=== PATIENT | female | born 1965 | race Caucasian/White ===

== ENCOUNTER 2019-10-31 15:57 | Outpatient (REF) | payer BC, SELFPAY ==
[2019-10-31 19:31] LABS: Abs Immature Grans 0.02 10^3/uL (0.0-0.06); Absolute Basophil Count 0.04 10^3/uL (0.0-0.2); Absolute Eosinophil Count 0.14 10^3/uL (0.0-0.7); Absolute Monocyte Count 0.47 10^3/uL (0.1-0.8); Absolute Neutrophil Count 4.11 10^3/uL (1.2-6.7); Basophils % 0.6; Eosinophils % 2.2; HGB 13.9 g/dL (11.2-15.7); Immature Grans % 0.3; Lymphocytes % 23.9; MCH 30.1 pg (27.0-33.0); MCHC 32.3 % (32.0-36.0); MCV 93.1 fL (80-95); MPV 11.1 fL (8.0-11.0); Monocytes % 7.5; Neutrophils % 65.5; Nucleated RBC 0 %; Platelet Count 255 10^3/uL (130-400); RBC 4.62 10^6/uL (3.93-5.22); RDW 12.5 % (11.7-14.6); RDW-SD 42.7 fL; WBC 6.28 10^3/uL (4.4-10.8)
[2019-10-31 19:48] LABS: ALT 27 U/L (14-59); AST 18 U/L (15-37); Albumin 3.8 g/dL (3.4-5.0); Alkaline Phosphatase 62 U/L (46-116); Anion Gap 6.2 mmol/L (3-11); BUN 11 mg/dL (7-18); Bilirubin, Total 1.4 mg/dL (0.2-1.0); CO2 28.8 mmol/L (21.0-32.0); CREATININE 0.75 mg/dL (0.55-1.02); Calcium 8.5 mg/dL (8.5-10.1); Calculated LDL 112 mg/dL (<100); Chloride 106 mmol/L (98-107); Cholesterol 187 mg/dL (<200); Glucose 67 mg/dL (74-106); HDL Cholesterol 61 mg/dL (40-60); Potassium 4.4 mmol/L (3.5-5.1); Sodium 141 mmol/L (136-145); TSH (W/Ref FT4) 1.71 uIU/mL (0.36-3.74); Total Protein 6.5 g/dL (6.4-8.2); Triglyceride 71 mg/dL (<150)
== END 2019-10-31 16:17 ==
LOC: NCHCN 15:57
PROVIDERS: PCP Physician Assistant Medical; Visit Provider Physician Assistant Medical
DX: Z00.00 Encounter for general adult medical examination without abnormal findings (principal); Z13.29 Encounter for screening for other suspected endocrine disorder; Z13.220 Encounter for screening for lipoid disorders; Z13.0 Encounter for screening for diseases of the blood and blood-forming organs and certain disorders involving the immune mechanism; Z13.228 Encounter for screening for other metabolic disorders
CPT/HCPCS: 80053; 80061; 84443; 85025

== ENCOUNTER 2019-11-20 01:03 | Outpatient (CLI) | payer BC, SELFPAY ==
--- NOTE | 2019-11-20 | DI.MAMMO_ITS ---
EXAM: MAMMO SCREENING CLINICAL HISTORY: SCREENING, [facility],Z00.00 TECHNIQUE: Mammograms were interpreted according to the usual protocol including computer analysis w [employer] CAD system, tomosynthesis and C-view imaging. COMPARISON: FINDINGS: The breasts are of moderate density with fairly symmetrical distribution of fibroglandular tissue. N o dominant mass or clumped microcalcification is identified in either breast. The current examinatio n is compared with previous examinations including March 2017 and there is question of interval in crease in prominence of a focal area of asymmetric density projected in the medial retroareolar porti on of the left breast. Additional mammographic views of this area are requested to include CC and ML O spot compression views of the left breast. No other significant change in comparison with the previous examinations. IMPRESSION: Additional mammographic views of the left breast are requested as described above. Breast ultrasound may be indicated as well depending on the results of the additional mammographic views. BI-RADS Category 0 - Assessment Incomplete: Need additional imaging evaluation Breast Density - Category B - Scattered areas of fibroglandular density
== END 2019-11-20 01:23 ==
PROVIDERS: PCP Physician Assistant Medical; Visit Provider Physician Assistant Medical
DX: Z12.31 Encounter for screening mammogram for malignant neoplasm of breast (principal); Z00.00 Encounter for general adult medical examination without abnormal findings
CPT/HCPCS: 77063; 77067

== ENCOUNTER 2019-11-25 01:05 | Outpatient (CLI) | payer BC, SELFPAY ==
--- NOTE | 2019-11-25 | DI.MAMMO_ITS ---
EXAM: MG MAMMO SCREEN CALL BACK UNI CLINICAL HISTORY: F/U ABNL MAMMO,?INCREASE IN ASYMMETRIC DENSITY,RETROAREOLAR LT BREAST TECHNIQUE: Spot compression views including C- View and tomographic imaging were performed. COMPARISON: 2009 through 20 November 2019. FINDINGS: Spot compression views with tomography were performed of the lower and inner quadrant of the left elliot ast. No suspicious masses or suspicious microcalcifications are seen. No persistent abnormality is seen on the additional views performed. The findings are consistent wit h overlying fibroglandular tissue. There has been no significant change from prior exams. IMPRESSION: BI-RADS Category 1, Negative Yearly screening mammography is recommended. Breast Density - Category B, scattered fibroglandular densities.
== END 2019-11-25 01:25 ==
PROVIDERS: PCP Physician Assistant Medical; Visit Provider Physician Assistant Medical
DX: R92.8 Other abnormal and inconclusive findings on diagnostic imaging of breast (principal); R92.2 Inconclusive mammogram
CPT/HCPCS: 77063; 77067

== ENCOUNTER 2020-01-21 18:27 | Outpatient (REF) | payer BC, SELFPAY ==
[2020-01-24 10:00] LABS: COVID-19 RT-PCR Result NEGATIVE (Negative)
== END 2020-01-21 18:47 ==
LOC: NCHCN 18:27
PROVIDERS: PCP Physician Assistant Medical; Visit Provider Physician Assistant Medical
DX: R05 Cough (principal)
CPT/HCPCS: U0003

== ENCOUNTER 2021-10-31 16:40 | Outpatient (REF) | payer BC, SELFPAY ==
--- NOTE | 2021-10-31 11:00 | PAPFT_PTH ---
PATIENT: Janes Martinez LOC: [facility]#:[id number] AGE/SX: 56/F ROOM: RE10/31/[address]: Sebastián Langston : 1965 BED: DIS: 10/31/2021 SPEC #: [id number] RECD: 10/31/21 17:08 STATUS: NO TOVAR #: [id number] FCO: 10/31/21 11:[address]: Sebastián Langston DEPT: [facility] Cytology RECD BY: Radha Ochoa Tissues: 1 - CX/ENDOCX FOR PAP SMEARS Procedures: PAP THIN PREP/UVM Screening HPV DNA PROBE Comments: [id number]
[2021-10-31 20:25] LABS: Glucose,1 Hr (Glucola) 83 mg/dL (80-140)
[2021-10-31 20:29] LABS: Calculated LDL 119 mg/dL (<100); Cholesterol 198 mg/dL (<200); HDL Cholesterol 65 mg/dL (40-60); Triglyceride 72 mg/dL (<150)
== END 2021-10-31 16:41 | disposition home or self-care (01) ==
LOC: NCHCN 16:40
PROVIDERS: PCP Physician Assistant Medical; Visit Provider Physician Assistant Medical
DX: Z12.4 Encounter for screening for malignant neoplasm of cervix (principal); Z11.51 Encounter for screening for human papillomavirus (HPV); Z00.00 Encounter for general adult medical examination without abnormal findings
CPT/HCPCS: 80061; 82950; 88142; 87624

== ENCOUNTER 2022-02-17 01:01 | Outpatient (CLI) | payer BC, SELFPAY ==
--- NOTE | 2022-02-17 08:30 | DI.MAMMO_ITS ---
Exam(s) MAMMO SCREENING EXAM: MAMMO SCREENING CLINICAL HISTORY: SCREENING, Z12.31 TECHNIQUE: Mammograms were interpreted according to the usual protocol including computer analysis w [employer] CAD system, tomosynthesis and C-view imaging. COMPARISON: 2014 through 2019 FINDINGS: The breasts are composed of scattered fibroglandular densities, Breast Density category B. No suspicious masses or suspicious microcalcifications are seen. No skin thickening or abnormal axillary lymph nodes are seen. There has been no significant change from prior exams. IMPRESSION: BI-RADS Category 1, Negative mammogram Yearly screening mammography is recommended. Breast Density - Category B, scattered fibroglandular densities. A negative radiographic report should not delay biopsy if a dominant or clinically suspicious mass is present. Up to ten percent of cancers are not identified on mammography. A negative report may reinforce clinical impression. Adenosis and dense breasts may obscure an underlying neoplasm. False positive reports average 6 to 10%. Patient will receive a letter notifying them of these results.
== END 2022-02-17 01:21 ==
LOC: DI 01:01
PROVIDERS: PCP Physician Assistant Medical; Visit Provider Physician Assistant Medical
DX: Z12.31 Encounter for screening mammogram for malignant neoplasm of breast (principal)
CPT/HCPCS: 77063; 77067

== ENCOUNTER 2022-03-08 07:25 | Outpatient (CLI) | payer BC, SELFPAY ==
--- NOTE | 2022-03-08 | DI.RAD_ITS ---
Exam(s) XR THUMB RT EXAM: XR THUMB RT CLINICAL HISTORY: RT THUMB PAIN, M79.644. TECHNIQUE: 2D digital imaging was performed. Three views. COMPARISON: No exams were available for comparison FINDINGS: BONES: No acute fracture is present. No bony destructive lesion is seen. Minimal degenerative change s 1st MTP joint.. JOINTS: No dislocation present. SOFT TISSUE: Normal. IMPRESSION: Minimal degenerative changes. DATA REPOSITORY: RADIATION DOSE DELIVERED:
== END 2022-03-08 07:45 ==
LOC: DI 07:25
PROVIDERS: PCP Physician Assistant Medical; Visit Provider Nurse Practitioner Family
DX: M79.644 Pain in right finger(s) (principal); M25.841 Other specified joint disorders, right hand
CPT/HCPCS: 73140

== ENCOUNTER 2022-04-23 10:04 | Emergency (ER) | payer BC, SELFPAY ==
[2022-04-23 10:06] VITALS: BP 139/81; PULSE 63; RESP 18; TEMP 37.2; O2SAT 100
--- NOTE | 2022-04-23 10:36 | ED.GENADUL_ITS ---
Discharge Plan Disposition Patient Disposition: Home Condition: Stable Discharge Details Clinical Impression: Erysipelas, Rash Primary Care Provider: Sebastián Langston ED Provider: Shantanu Marion Home Meds and New Rx's Prescriptions: New cephalexin 500 mg capsule 500 mg PO QID Qty: 28 0RF Continued diphenhydramine HCl [Allergy (diphenhydramine)] 25 mg capsule 25 mg PO QHS hydroxyzine HCl 25 mg tablet 25 mg PO QHS ibuprofen 800 MG tablet 800 mg PO PRN PRN Discharge Instructions Instructions: Cellulitis (ED) Additional Instructions: Please continue to take Benadryl. Dose according to label. Take antibiotic as prescribed. Be sure to complete the full course. Please use sensitive skin detergents and avoid fragrances. You may trial cleansing oil (like Jojoba oil) instead of soap to avoid skin drying and irritant effect of soap. Please follow-up with dermatology. Please contact your primary care physician to arrange follow-up. If rash does not improve with antibiotics, you may need additional treatment including consi deration for steroid. Return to the ER immediately for any worsening or new concerning symptoms. Referrals: Sebastián Langston PA [Primary Care Provider] - Medical Decision Making 56-year-old female with history of sensitive skin here with chronic rash involving her upper extremities and back with multiple excoriations, now with more confluent erythema left face concerning for erysipelas. Plan to initiate treatment with Keflex. Will send RPR. Regarding chronic rash, patient has follow-up scheduled with dermatology. I hatch ve advised her to switch all detergents to sensitive skin and discussed potentially replacing soap with cleansing oil. Patient instructed to follow-up with PCP and dermatology. Usual and customary i nstructions otherwise reviewed. HPI General Mode of arrival: ambulatory . Date/Time Provider Initiated Documentation: 04/23/22 10:24 . Limitations to Documentation: no limitations . Information obtained by: patient . HPI Narrative: 56-year-old female presents with chief complaint of rash. Patient notes she has had rash on her arms and upper back for the past few months. She notes she has very sensitive skin and has been itching frequently. Over the past 4 days she has developed increased swelling and redness of her left face. Rash is confluent and worsening on her face. She has no associated fever. Rash is not painful. Patient notes she has follow-up scheduled with dermatology in June. No history of STDs. Related Data Home Medications Medication Instructions Recorded Confirmed ibuprofen 800 mg tablet 800 mg PO PRN PRN 08/06/14 04/23/22 diphenhydramine HCl 25 mg capsule 25 mg PO QHS 11/11/19 04/23/22 (Allergy (diphenhydramine)) hydroxyzine HCl 25 mg tablet 25 mg PO QHS 04/17/22 04/23/22 cephalexin 500 mg capsule 500 mg PO QID #28 caps 04/23/22 Previous Rx's Medication Instructions Recorded cephalexin 500 mg capsule 500 mg PO QID #28 caps 04/23/22 Allergies Allergy/AdvReac Type Severity Reaction Status Date / Time phenazopyridine Allergy Verified 04/23/22 10:10 [From Pyridium] aspirin AdvReac Intermediate gi upset Unverified 04/23/22 10:10 silicone AdvReac Intermediate Swelling/Ed Unverified 04/23/22 10:10 talita General Stated Complaint: Cellulitis MARBELLA: 3 Review of Systems All systems reviewed & are unremarkable except as noted in HPI and below Constitutional Constitutional: Denies fever(s) Integumentary/Breasts Skin/Breast: Reports as per HPI PFSH All Active Problems Erysipelas (Acute) Rash (Acute) Sensorineural hearing loss, bilateral (Acute 04/20/14) Bilateral hearing loss (Acute) Headache (Acute) Lipoma (Acute) Medical History Neoplasm of skin (04/20/14) Social History Smoking/Tobacco Use Status: Never Smoking risk assessment performed?: Yes Drug use: Never Current gender identity: female Exam Const General: cooperative and no acute distress HENMT Mouth: moist mucous membranes Eyes Conjunctivae: normal conjunctivae Sclera: normal sclerae Neck Neck: supple Resp Auscultation: clear to auscultation bilaterally, no rales, no rhonchi and no wheezes Cardio Rate: regular rate and not tachycardic Rhythm: regular rhythm GI Palpation: soft, not firm, no guarding, no masses, not rigid and nontender Skin Rashes: rashes noted (Maculopapular rash on her arms and upper back with excoriations) Other: Confluent raised erythema of her left face concerning for erysipelas Neuro General: patient alert, patient awake and tone normal Course Vital Signs Vital signs: Vital Signs Temperature 37.2 C 04/23/22 10:06 Pulse 63 04/23/22 10:06 Respiratory Rate 18 04/23/22 10:06 Blood Pressure 139/81 04/23/22 10:06 Pulse Oximetry 100 04/23/22 10:06 Temperature 37.2 C 04/23/22 10:06 Temperature Source Skin 04/23/22 10:06 Pulse 63 04/23/22 10:06 Respiratory Rate 18 04/23/22 10:06 Blood Pressure 139/81 04/23/22 10:06 Blood Pressure Position Supine 04/23/22 10:06 Pulse Oximetry 100 04/23/22 10:06 Oxygen Delivery Method Room Air 04/23/22 10:06 Oxygen Flow Rate 0 04/23/22 10:06
[2022-04-23] MEDS: Cephalexin 500 MG CAP PO (10:49)
[2022-04-23 11:30] VITALS: BP 130/88; PULSE 58; RESP 18; TEMP 37; O2SAT 99
[2022-04-25 10:45] LABS: Syphilis Serology (RPR) Negative (Negative)
== END 2022-04-23 11:31 | disposition home or self-care (01) ==
PROVIDERS: Emergency Provider Student in an Organized Health Care Education/Training Program; PCP Physician Assistant Medical
DX: A46 Erysipelas (principal); R21 Rash and other nonspecific skin eruption
CPT/HCPCS: 99283; 86592; 99284

== ENCOUNTER 2022-09-12 08:21 | Emergency (ER) | payer BC, SELFPAY ==
--- NOTE | 2022-09-12 08:15 | DI.RAD_ITS ---
Exam(s) XR RIBS RT W PA LAT CHEST CLINICAL HISTORY: right rib pain after fall. COMPARISON: No exams were available for comparison TECHNIQUE:: PA and lateral views of the chest and four views of the right ribs were performed. FINDINGS: LUNGS:Clear. No pleural abnormality seen. HEART: Normal. MEDIASTINUM: Normal. BONES: Nondisplaced fractures of the anterior right 4th, 5th and 6th ribs. No bony destructive lesio n is seen. OTHER FINDINGS: None. IMPRESSION: 1. Nondisplaced fractures of the right 4th through 6th ribs. 2. No acute pulmonary findings.
[2022-09-12 08:25] VITALS: BP 133/84; PULSE 60; RESP 18; TEMP 36.7; O2SAT 100
[2022-09-12] MEDS: Lidocaine 5% Patch 1 PATCH TP ×2 (08:40→09:36)
[2022-09-12] MEDS: Acetaminophen 500 MG TAB 1000 MG PO (08:40)
--- NOTE | 2022-09-12 08:45 | ED.GENADUL_ITS ---
Discharge Plan Disposition Patient Disposition: Home Condition: Good Discharge Details Clinical Impression: Rib pain on right side Primary Care Provider: Sebastián Langston ED Provider: Alek Will Home Meds and New Rx's Prescriptions: New lidocaine [Lidoderm] 5 % adhesive patch,medicated 1 patch Topical Q24H Qty: 15 0RF No Action diphenhydramine HCl [Allergy (diphenhydramine)] 25 mg capsule 25 mg PO QHS hydroxyzine HCl 25 mg tablet 25 mg PO QHS ibuprofen 800 MG tablet 800 mg PO PRN PRN Discharge Instructions Instructions: Chest Wall Pain (ED) Additional Instructions: At this time you do have a fracture of your right fourth fifth and sixth ribs. Please apply the Lidoderm patches as directed. Please take Tylenol and Motrin as needed for pain. You can use a wrap on the area if it helps with pain and continues your deep breathing. Please use the incentive spirometer as directed to prevent the development of a pneumonia. If you notice any worsening of your symptoms, or any new symptoms such as vomiting, diarrhea, fever, chills, shortness of breath, chest pain, numbness, weakness, or fainting , please return immediately to the emergency department for reevaluation. Please follow up with your primary care provider as soon as possible for reassessment and reevaluation. As always, it was a pleasure participating in your medical care today. Referrals: Sebastián Langston PA [Primary Care Provider] - Medical Decision Making This is a 57-year-old female with a past medical history of partial hearing loss, and no other significant past medical history who presents today for evaluation of right rib pain. Patient was walking her dog last night when she got tangled up in the leash and she fell onto her right ribs. She had pain then. She took ibuprofen without any significant improvement of pain. She denies any numbness tingling or weakness. She does have a small amount of pain with breathing. Pain is made worse with movement and palpation of the area on the right chest. She denies any history of pneumothorax. She does not smoke. She denies any cough. No fever or chills. Exam demonstrates right rib pain just under the right breast. No tenderness anterior posteriorly. Concern for rib fractures. Differential also includes pneumothorax. We will get an x-ray monitor closely and reassess, give Tylenol and Lidoderm patch 9:26 AM No evidence of pneumothorax on x-ray. Patient does have nondisplaced fractures of the right fourth fifth and sixth rib. Patient is feeling much better. She does not want a block performed by anesthesia. We will give her prescription for Lidoderm patch recommend continue Tylenol Motrin on an outpatient basis. Discussed red flags for which to return. Incentive spirometer was given. I have extensively reviewed the treatment plan and discharge instructions with the patient. I have addressed all patient concerns at this time. The patient was made aware of what symptoms to monitor for that would warrant a return to the emergency department. Discussed the plan with the patient, they demonstrate verbal understanding and agreement with our assessment and plan at this time. The documentation in this chart was dictated using [employer] dictation software. Please excuse any dictation errors. FINDINGS: LUNGS:Clear. No pleural abnormality seen. HEART: Normal. MEDIASTINUM: Normal. BONES: Nondisplaced fractures of the anterior right 4th, 5th and 6th ribs. No bony destructive lesion is seen. OTHER FINDINGS: None. IMPRESSION: 1. Nondisplaced fractures of the right 4th through 6th ribs. 2. No acute pulmonary findings. HPI General Date/Time Provider Initiated Documentation: 09/12/22 08:24 . HPI Narrative: This is a 57-year-old female with a past medical history of partial hearing loss, and no other significant past medical history who presents today for evaluation of right rib pain. Patient was walking her dog last night when she got tangled up in the leash and she fell onto her right ribs. She had pain then. She took ibuprofen without any significant improvement of pain. She denies any numbness tingling or weakness. She does have a small amount of pain with breathing. Pain is made worse with movement and palpation of the area on the right chest. She denies any history of pneumothorax. She does not smoke. She denies any cough. No fever or chills. Related Data Home Medications Medication Instructions Recorded Confirmed ibuprofen 800 mg tablet 800 mg PO PRN PRN 08/06/14 09/12/22 diphenhydramine HCl 25 mg capsule 25 mg PO QHS 11/11/19 09/12/22 (Allergy (diphenhydramine)) hydroxyzine HCl 25 mg tablet 25 mg PO QHS 04/17/22 09/12/22 lidocaine 5 % topical patch 1 patch topical Q24H #15 ea 09/12/22 (Lidoderm) Previous Rx's Medication Instructions Recorded lidocaine 5 % topical patch 1 patch topical Q24H #15 ea 09/12/22 (Lidoderm) Allergies Allergy/AdvReac Type Severity Reaction Status Date / Time phenazopyridine Allergy Verified 09/12/22 08:30 [From Pyridium] aspirin AdvReac Intermediate gi upset Unverified 09/12/22 08:30 silicone AdvReac Intermediate Swelling/Ed Unverified 09/12/22 08:30 talita General Stated Complaint: Chest/Rib MARBELLA: 4 Review of Systems All systems reviewed & are unremarkable except as noted in HPI and below PFSH All Active Problems (Updated 09/12/22 @ 09:19 by Alek Will DO) Rib pain on right side (Acute) Sprain of metacarpophalangeal joint of right thumb (Acute) Sensorineural hearing loss, bilateral (Acute 04/20/14) Bilateral hearing loss (Acute) Headache (Acute) Lipoma (Acute) Medical History Neoplasm of skin (04/20/14) Social History Smoking/Tobacco Use Status: Never Smoking risk assessment performed?: Yes Drug use: Never Substance use type: does not use Current gender identity: female Do you feel safe at home: Yes Do you feel safe in your relationship?: Yes Exam Narrative Exam Narrative: 1.Const: Well-nourished, Well-developed, appearing stated age 2.Eyes: PERRL, no conjunctival injection, and symmetrical lids. 3.ENT: Atraumatic external nose and ears. Moist MM. Neck: Symmetric, trachea midline, No thyromegaly. 4.CVS: +S1/S2, No murmurs or gallops. Peripheral pulses 2+ and equal in all extremities. Brisk capillary refill in all extremities. 5.RESP: Unlabored respiratory effort. Clear to auscultation bilaterally. No wheezes rales or rhonchi 6.GI: Soft, Nontender/Nondistended, No hepatosplenomegaly. No guarding or rebound. 7.MSK: Right-sided rib pain just under the right breast. No significant bruising. No tenderness in the anterior posterior aspects. No paradoxical movements. No subcutaneous crepitus. 8.Skin: Warm, Dry. No rashes or lesions. 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 Sensation grossly intact, no focal neurologic deficits. 10.Psych: (AAO) x3. Appropriate mood and affect Course Vital Signs Vital signs: Vital Signs Temperature 36.7 C 09/12/22 08:25 Pulse 60 09/12/22 08:25 Respiratory Rate 18 09/12/22 08:25 Blood Pressure 133/84 09/12/22 08:25 Pulse Oximetry 100 09/12/22 08:25 Temperature 36.7 C 09/12/22 08:25 Temperature Source Skin 09/12/22 08:25 Pulse 60 09/12/22 08:25 Respiratory Rate 18 09/12/22 08:25 Respiratory Effort Normal 09/12/22 08:29 Blood Pressure 133/84 09/12/22 08:25 Blood Pressure Position Sitting 09/12/22 08:25 Pulse Oximetry 100 09/12/22 08:25 Oxygen Delivery Method Room Air 09/12/22 08:25 Oxygen Flow Rate 0 09/12/22 08:25 Pain Level 9 09/12/22 08:25
== END 2022-09-12 09:38 | disposition home or self-care (01) ==
PROVIDERS: Emergency Provider Student in an Organized Health Care Education/Training Program; PCP Physician Assistant Medical
DX: S22.41XA Multiple fractures of ribs, right side, initial encounter for closed fracture (principal); Y93.K1 Activity, walking an animal; Y92.89 Other specified places as the place of occurrence of the external cause; Y99.9 Unspecified external cause status
CPT/HCPCS: 71046; 71100

== ENCOUNTER 2024-02-08 00:42 | Outpatient (CLI) | payer BC, SELFPAY ==
--- NOTE | 2024-02-08 | DI.MAMMO_ITS ---
Exam(s) MAMMO SCREENING EXAM: MAMMO SCREENING CLINICAL HISTORY: SCREENING,Z12.31 TECHNIQUE: Mammograms were interpreted according to the usual protocol including computer analysis w [employer] CAD system, tomosynthesis and C-view imaging. COMPARISON: 2014 through 2022 FINDINGS: The breasts are composed of mainly fatty density , Breast Density category A. No suspicious masses or suspicious microcalcifications are seen. No skin thickening or abnormal axillary lymph nodes are seen. There has been no significant change from prior exams. IMPRESSION: BI-RADS Category 1, Negative mammogram Yearly screening mammography is recommended. Breast Density - Category A, fatty density. A negative radiographic report should not delay biopsy if a dominant or clinically suspicious mass is present. Up to ten percent of cancers are not identified on mammography. A negative report may reinforce clinical impression. Adenosis and dense breasts may obscure an underlying neoplasm. False positive reports average 6 to 10%. Patient will receive a letter notifying them of these results.
--- OUTSIDE RECORDS SUMMARY | 2024-02-08 00:44 | XMS_ITS | Encounter Summary ---
Author Organization [facility] Address [address] [place] [address] Care Team Providers Care Roof Technician Name Role Phone Unavailable Primary Care Provider Unavailabl e Encounter Details Date Type Department Care Team (Late st Contact Info) Description 12/02/1999 Results Only [facility] [address] [place] [address] Lisa Cerna, [facility] [address] [place] [address] Social History Tobacco Use Types Packs/Day Years Used Date Smoking Tobacco: Never Assessed Comments Unknown Sex and Gender Information Value Date Recorded Sex Assigned at Not on file Legal Sex Female 18:22 EST Gender Identity Not on file Sexual Orientation Not on file documented as of this encounter Plan of Treatment Not on file documented as of this encounter Procedures Procedure Name Priority Date/Time Associated Diagnosis Comments CYTOPATHOLOGY Routine 12/02/1999 0:00 EDT documented in this encounter Results * CYTOPATHOLOGY (12/02/1999 0:00 EDT) Pathology Report: CYTOPATHOLOGY REPORT Reports generated via electronic interface contain original data; however they are lacking the format of the original report. Caution should be taken when reading/interpreti ng unformatted reports. Name: ? JANES MARTINEZ ? Accession #: ? [id number] : ? 1965 (Age: 34) ??F ?Collect Date: ? 12/02/1999 Location: ? [facility] ? Receive Date: ? 12/06/1999 Provider: ?LISA CERNA ADJUNCT TEACHER Copy to: ? Specimen/Source: ?ThinPrep Pap Test, Cervix/Endocervix Last Menstrual Period: ? 11/19/99 Previous Gynecologic Pathology: ? HSIL: Conization ? SPECIMEN ADEQUACY ? Satisfactory for evaluation. GENERAL CATEGORIZATION ? Within Normal Limits ? Document reviewed and electronically signed by: ? HAILMA Santiago(ASCP) ? Report Date: ??12/14/1999 12:47 End of Report JULIO FREY 12/02/1999 12/06/1999 Lisa Cerna ADJUNCT TEACHER PATHOLOGY ORDERABLES Final R esult [facility] [address] [place] [address] documented in this encounter Visit Diagnoses Not on filedocumented in this encounter
--- OUTSIDE RECORDS SUMMARY | 2024-02-08 00:44 | XMS_ITS | Clinical Summary ---
Author Organization [facility] Address [address] [place] [address] Care Team Providers Care Sheet Metal Former Name Role Phone Sebastián Langston PA-C Primary Care Provider + Social History Tobacco Use Types Packs/Day Years Used Date Smoking Tobacco: Never Assessed Comments Unknown Sex and Gender Information Value Date Recorded Sex Assigned at Not on file Legal Sex Female 18:22 EST Gender Identity Not on file Sexual Orientation Not on file Plan of Treatment Health Maintenance Due Date Last Done Comments Hepatitis C Screen 1965 COVID-19 Vaccine (2023-25 season) 2023 RSV Immunization ( o r 60+ Years) (1 - 1-dose 75+ series) 06/25/2038 Care Teams Sheet Metal Former Relationship Specialty Start Date End Date Sebastián Langston PA-C PCP - General 04/22/14
--- OUTSIDE RECORDS SUMMARY | 2024-02-08 00:44 | XMS_ITS | Encounter Summary ---
Author Organization [facility] Address [address] [place] [address] Care Team Providers Care Paper Tester Name Role Phone Unavailable Primary Care Provider Unavailabl e Encounter Details Date Type Department Care Team (Late st Contact Info) Description 04/01/2003 Results Only [facility] [place] [facility] [address] [place] [address] Renetta Amaya, PENSION ADVISER Social History Tobacco Use Types Packs/Day Years [...] Priority Date/Time Associated Diagnosis Comments CYTOPATHOLOGY Routine 04/01/2003 0:00 EST documented in this encounter Results * CYTOPATHOLOGY (04/01/2003 0:00 EST) Pathology Report: CYTOPATHOLOGY REPORT Reports generated via electronic interface contain original data; however they are lacking the format of the original report. Caution should be taken when reading/interpreti ng unformatted reports. Name: ? JANES MARTINEZ ? Accession #: ? [id number] : ? 1965 (Age: 37) ??F ?Collect Date: ? 04/01/2003 Location: ? [facility] ? Receive Date: ? 04/02/2003 Provider: ?RENETTA AMAYA PENSION ADVISER Copy to: ? Specimen/Source: ?ThinPrep Pap Test, Cervix/Endocervix Last Menstrual Period: ? 03/20/03 Previous Gynecologic Pathology: ? HSIL: Treatment History: ? Cone biopsy: Conization HSIL Other: ? Additional clinical information: Endocervical polyps ? SPECIMEN ADEQUACY ? Satisfactory for Evaluation - transformation zone component present GENERAL CATEGORIZATION ? Negative for Intraepithelial Lesion or Malignancy INTERPRETATION ? Shift in sheri present suggestive of bacterial vaginosis. ? Document reviewed and electronically signed by: ? Nuria Villaseñor, SCT(ASCP) ? Report Date: ??04/06/2003 15:06 End of Report JULIO FREY 04/01/2003 04/02/2003 us Renetta Amaya PENSION ADVISER PATHOLOGY ORDERABLES Final Re sult [facility] [address] [place] [address] documented in this encounter Visit Diagnoses Not on filedocumented in this encounter
--- OUTSIDE RECORDS SUMMARY | 2024-02-08 00:44 | XMS_ITS | Encounter Summary ---
Author Organization [facility] Address [address] [place] [address] Care Team Providers Care Director Of Blood Name Role Phone Unavailable Primary Care Provider Unavailabl e Encounter Details Date Type Department Care Team (Late st Contact Info) Description 11/21/2011 Results Only [facility] - [facility] ([facility] [address] [place], [place] [id number] Lisa Cerna, [facility] [address] [place] [address] Social History Tobacco Use Types [...] Procedure Name Priority Date/Time Associated Diagnosis Comments PAP TEST- RESULT ONLY Routine 11/21/2011 0:00 EDT documented in this encounter Results * PAP TEST- RESULT ONLY (11/21/2011 0:00 EDT) Pathology Report: CYTOPATHOLOGY REPORT Reports generated via electronic interface contain original data; however they are lacking the format of the original report. Caution should be taken when reading/interpreti ng unformatted reports. Name: ? JANES MARTINEZ ? Accession #: ? [id number] : ? 1965 (Age: 46) ??F ?Collect Date: ? 11/21/2011 Location: ? [facility] ? Receive Date: ? 11/22/2011 Provider: ?LISA CERNA IMPREGNATOR ELECTROLYTIC CAPACITORS Copy to: ? Specimen/Source: ?Pap Test, Cervix/Endocervix, ThinPrep Imaging System with manual evaluation Last Menstrual Period: ? 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 Cone biopsy: 18 yrs ago ? SPECIMEN ADEQUACY ? Satisfactory for Evaluation - transformation zone component present GENERAL CATEGORIZATION ? Negative for Intraepithelial Lesion or Malignancy ? Document reviewed and electronically signed by: ? Des Rizo, IRIS(ASCP) ? Report Date: ??11/28/2011 14:14 End of Report JULIO FREY 11/21/2011 11/22/2011 us Lisa Cerna IMPREGNATOR ELECTROLYTIC CAPACITORS PATHOLOGY ORDERABLES Final R esult JULIO FREY [address] [place] [address] documented in this encounter Visit Diagnoses Not on filedocumented in this encounter
--- OUTSIDE RECORDS SUMMARY | 2024-02-08 00:44 | XMS_ITS | Encounter Summary ---
Author Organization [facility] Address [address] [place] [address] Care Team Providers Care Bench Manager Name Role Phone Sebastián Langston PA-C Primary Care Provider + Encounter Details Date Type Department Care Team (Latest Contact Info) Description 11/01/2021 Lab Requisition [facility] Pathology & Laboratory Medicine - [facility] [address] [place] [address] Sebastián Langston PA-C [address] [place] [phone] Encounter for gynecological examination (general) (routine) without abnormal findings Social History Tobacco Use Types Packs/Day Years [...] Name Priority Date/Time Associated Diagnosis Comments PAP TEST Today 10/31/2021 11:00 EDT Encounter for gynecological examination (general) (routine) without abnormal findings HPV DNA DETECTION WITH GENOTYPING, PCR Today 10/31/2021 11:00 EDT Encounter for gynecological examination (general) (routine) without abnormal findings documented in this encounter Results * HUMAN PAPILLOMAVIRUS (HPV) DETECTION-HIGH RISK TYPES (10/31/2021 11:00 EDT) HPV other High Risk types, PCR Negative Negative 11/07/2021 15:19 EDT [facility] Comment:No E6 or E7 mRNA is detected from HPV types 16,18,31,33,35,39,45,51,52,56,58,59,66, and 68 by admissions evaluator mediated amplification. Papanicolaou smear specimen (specimen) CERVIX UTERI STRUCTURE / Unknown 10/31/2021 11:00 EDT 11/04/2021 13:49 EDT us Sebastián Langston PA-C MICROBIOLOGY - GENERAL O RDERABLES Final Result [facility] [address] [place] [address] * PAP TEST (10/31/2021 11:00 EDT) Specimens A. Cervix and/or Endocervix , ThinPrep Imaging System with Manual Evaluation 11/07/2021 15:19 [facility] Specimen Adequacy Satisfactory for Evaluation - transformation zone component present 11/07/2021 15:19 [facility] General Categorization Negative for intraepithelial lesion or malignancy 11/07/2021 15:19 [facility] Attestation . 11/07/2021 15:19 [facility] at 1519 Clinical History See below 11/08/19 15:19 [facility] HPV The result for the Human Papillomavirus (HPV) Detection-High Risk Types is Negative. No E6 or E7 mRNA is detected from HPV types 16,18,31,33,35,39 ,45,51,52,56,58,5 9,66, and 68 by admissions evaluator mediated amplification.Daylin ting was performed on specimen [id number] and was resulted on 11/07/2021 1517 EDT by CAM, LAB INSTRUMENT RESULTS IN 11/07/2021 15:19 T [facility] Performing Lab [facility] 11/07/2021 15:19 T [facility] Scanned Images 11/07/2021 15:19 EDT [facility] Papanicolaou smear specimen (specimen) CERVIX UTERI STRUCTURE / Unknown 10/31/2021 11:00 EDT 11/01/2021 14:30 EDT us Sebastián Langston PA-C PATHOLOGY ORDERABLES Fin al Result [facility] [address] [place] [address] documented in this encounter Visit Diagnoses Diagnosis Encounter for gynecological examination (general) (routine) without abnormal findings documented in this encounter Care Teams Bench Manager Relationship Specialty Start Date End Date Sebastián Langston PA-C PCP - General 04/22/14 documented as of this encounter
--- OUTSIDE RECORDS SUMMARY | 2024-02-08 00:44 | XMS_ITS | Encounter Summary ---
Author Organization [facility] Address [address] [place] [address] Care Team Providers Care Registered Nurse Fetal Name Role Phone Sebastián Langston PA-C Primary Care Provider + Encounter Details Date Type Department Care Team (Late st Contact Info) Description 04/23/2022 Lab Requisition [facility] Pathology & Laboratory Medicine - [address] [id number] Outr Resulting Lab, Provider Social History Tobacco Use Types Packs/Day Years [...] Procedure Name Priority Date/Time Associated Diagnosis Comments SYPHILIS SEROLOGY Routine 04/23/2022 11: 07 EDT documented in this encounter Results * SYPHILIS SEROLOGY (04/23/2022 11:07 EDT) Syphilis Serology Negative Negative 04/25/2022 10:41 EDT [facility] Blood VENOUS BLOOD / Unknown 04/23/2022 11:07 EDT 04/24/2022 16:46 EDT us Provider Outr Resulting Lab IMMUNOLOGY AND SEROL OGY ORDERABLES Final Result [facility] [address] [place] [address] documented in this encounter Visit Diagnoses Not on filedocumented in this encounter Care Teams Registered Nurse Fetal Relationship Specialty Start Date End Date Sebastián Langston PA-C PCP - General 04/22/14 documented as of this encounter
--- OUTSIDE RECORDS SUMMARY | 2024-02-08 00:44 | XMS_ITS | Encounter Summary ---
Author Organization [facility] Address [address] [place] [address] Care Team Providers Care Doctor Of Radiology Name Role Phone Salazar Neville MD Primary Care Provider Unav ailable Encounter Details Date Type Department Care Team (Latest Contact Info) Description 04/20/2014 15:12 EDT - 04/20/2014 23:59 EDT Hospital Encounter [address] [address] Unknown, Provider, Discharge Disposition: Home or Self Care Social History Tobacco Use Types Packs/Day Years Used Date Smoking Tobacco: Never Assessed Comments Unknown Sex and Gender Information Value Date Recorded Sex Assigned at Not on file Legal Sex Female 18:22 EST Gender Identity Not on file Sexual Orientation Not on file documented as of this encounter Discharge Disposition Disposition Code Departure Means Destination Home or Self Penitentiary documented in this encounter Plan of Treatment Not on file documented as of this encounter Visit Diagnoses Not on filedocumented in this encounter Care Teams Doctor Of Radiology Relationship Specialty Start Date End Date Salazar Neville MD PCP - General 12/06/11 04/21/14 documented as of this encounter
--- OUTSIDE RECORDS SUMMARY | 2024-02-08 00:44 | XMS_ITS | Encounter Summary ---
Author Organization [facility] Address [address] [place] [address] Care Team Providers Care Broadcast Systems Engineer Name Role Phone Salazar Neville MD Primary Care Provider Unav ailable Encounter Details Date Type Department Care Team (Late st Contact Info) Description 04/20/2014 Results Only [facility] [phone] Johana Li, [address] [place] [address] Social History Tobacco Use Types Packs/Day Years [...] Procedure Name Priority Date/Time Associated Diagnosis Comments SURGICAL PATHOLOGY Routine 04/20/2014 11 :34 EDT documented in this encounter Results * SURGICAL PATHOLOGY (04/20/2014 11:34 EDT) Pathology Report: SURGICAL PATHOLOGY REPORT Reports generated via electronic interface contain original data; however they are lacking the format of the original report. Caution should be taken when reading/interpret ing unformatted reports. Name: ? JANES MARTINEZ ? Accession #: ? [id number] ? : ? 1965 (Age: 48) ??F ? Collect Date: ? 04/20/2014 ? Location: ? [facility] ? Receive Date: ? 04/21/2014 ? Provider: JOHANA LI DO Copy to: SALAZAR NEVILLE MD ? Final Pathologic Diagnosis: A. SKIN OF NECK, POSTERIOR, SHAVE BIOPSY: - Melanocytic nevus, intradermal type. - Lesion extends to base of biopsy specimen. ? B. SKIN OF CHEST, SHAVE BIOPSY: - Melanocytic nevus, intradermal type. - Lesion extends to base of biopsy specimen. Document reviewed and electronically signed by: CASANDRA ABEL MD Report ??Date: 04/22/2014 11:43 By the signature above, the attending physician certifies that he/she has personally conducted a gross and/or microscopic examination of the described specimens and rendered or confirmed the above diagnosis. Specimen(s) Received: A. ??Posterior neck B. ??Chest Clinical History: Pedunculated skin lesions; clinical diagnosis code: 239.2 Gross Description: A. ?Received in formalin labelled with proper patient identification (initials Y, R) and posterior neck is a shave biopsy of a fischer-red smooth springy papule (0.6 x 0.5 x 0.1 cm). ??The specimen is trisected and entirely submitted in A1. B. ?Received in formalin labelled with proper patient identification (initials Y, R) and chest is a shave biopsy of pink-fischer skin (0.4 x 0.4 x 0.1 cm). There is an eccentric fischer-white bosselated papule that measures 1.0 x 0.9 x 0.1 cm. ??The specimen is serially sectioned and entirely submitted as B1 central sections and B2 ends, reverse en face. Nilton Jimenez 04/21/2014 12:43 PM End of Report [facility] 04/20/2014 11:3 4 EDT 04/21/2014 11:34 EDT us Johana Li DO PATHOLOGY ORDERABLES Fi nal Result [facility] [address] [place] [address] documented in this encounter Visit Diagnoses Not on filedocumented in this encounter Care Teams Broadcast Systems Engineer Relationship Specialty Start Date End Date Salazar Neville MD PCP - General 12/06/11 04/21/14 documented as of this encounter
--- OUTSIDE RECORDS SUMMARY | 2024-02-08 00:44 | XMS_ITS | Referral Summary ---
Author Organization [facility] Address [address] [place] [address] Care Team Providers Care Social Security Benefits Interviewer Name Role Phone Sebastián Langston PA-C Primary Care Provider + Social History Tobacco Use Types Packs/Day Years Used Date Smoking Tobacco: Never Assessed Comments Unknown Sex and Gender Information Value Date Recorded Sex Assigned at Not on file Legal Sex Female 18:22 EST Gender Identity Not on file Sexual Orientation Not on file Plan of Treatment Not on file Care Teams Social Security Benefits Interviewer Relationship Specialty Start Date End Date Sebastián Langston PA-C PCP - General 04/22/14
--- OUTSIDE RECORDS SUMMARY | 2024-02-08 00:44 | XMS_ITS | Encounter Summary ---
Author Organization [facility] Address [address] [place] [address] Care Team Providers Care Scrap Wheeler Name Role Phone Unavailable Primary Care Provider Unavailabl e Encounter Details Date Type Department Care Team (Late st Contact Info) Description 04/15/2004 Results Only [facility] [address] [place] [address] Lisa Cerna, [facility] [address] [place] [phone] Social History Tobacco Use Types Packs/Day [...] Priority Date/Time Associated Diagnosis Comments CYTOPATHOLOGY Routine 04/15/2004 0:00 EST documented in this encounter Results * CYTOPATHOLOGY (04/15/2004 0:00 EST) Pathology Report: CYTOPATHOLOGY REPORT Reports generated via electronic interface contain original data; however they are lacking the format of the original report. Caution should be taken when reading/interpreti ng unformatted reports. Name: ? JANES MARTINEZ ? Accession #: ? [id number] : ? 1965 (Age: 38) ??F ?Collect Date: ? 04/15/2004 Location: ? [facility] ? Receive Date: ? 04/18/2004 Provider: ?LISA CERNA EXPERIMENTAL PREFLIGHT MECHANIC Copy to: ? Specimen/Source: ?ThinPrep Pap Test, Cervix/Endocervix Last Menstrual Period: ? 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 Cone biopsy: 1996 Other: ? Additional clinical information: Endocervical polps HPVA - HPV testing requested if ASC-US on the current ThinPrep Pap test. ? SPECIMEN ADEQUACY ? Satisfactory for Evaluation - transformation zone component present GENERAL CATEGORIZATION ? Negative for Intraepithelial Lesion or Malignancy ? Document reviewed and electronically signed by: ? IRIS Hansen(ASCP) ? Report Date: ??04/21/2004 08:34 End of Report JULIO FREY 04/15/2004 04/18/2004 Lisa Cerna EXPERIMENTAL PREFLIGHT MECHANIC PATHOLOGY ORDERABLES Final R esult [facility] [address] [place] [address] documented in this encounter Visit Diagnoses Not on filedocumented in this encounter
--- OUTSIDE RECORDS SUMMARY | 2024-02-08 00:44 | XMS_ITS | Encounter Summary ---
Author Organization [facility] Address [address] [place] [address] Care Team Providers Care Drilling Field Operator Name Role Phone Unavailable Primary Care Provider Unavailabl e Encounter Details Date Type Department Care Team (Late st Contact Info) Description 02/15/2006 Results Only [facility] - [facility] [address] [place] [address] Lisa Cerna, [facility] [address] [place] [phone] Social History Tobacco Use Types Packs/Day [...] Priority Date/Time Associated Diagnosis Comments CYTOPATHOLOGY Routine 02/15/2006 0:00 EST documented in this encounter Results * CYTOPATHOLOGY (02/15/2006 0:00 EST) Pathology Report: CYTOPATHOLOGY REPORT Reports generated via electronic interface contain original data; however they are lacking the format of the original report. Caution should be taken when reading/interpreti ng unformatted reports. Name: ? JANES MARTINEZ ? Accession #: ? [id number] : ? 1965 (Age: 40) ??F ?Collect Date: ? 02/15/2006 Location: ? [facility] ? Receive Date: ? 02/16/2006 Provider: ?LISA CERNA SOUND RECORDING TECHNICIAN Copy to: ? Specimen/Source: ?ThinPrep Pap Test, Cervix/Endocervix, processed on [employer] ThinPrep Imaging System, with manual evaluation Last Menstrual Period: ? 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 Cone biopsy: Other: ? HPVA - HPV testing requested if ASC-US on the current ThinPrep Pap test. ? SPECIMEN ADEQUACY ? Satisfactory for Evaluation - transformation zone component present GENERAL CATEGORIZATION ? Negative for Intraepithelial Lesion or Malignancy ? Document reviewed and electronically signed by: ? Annie Thomas, IRIS(ASCP)(IAC) ? Report Date: ??02/19/2006 16:40 End of Report JULIO FREY 02/15/2006 02/16/2006 us Lisa Cerna SOUND RECORDING TECHNICIAN PATHOLOGY ORDERABLES Final R esult [facility] [address] [place] [address] documented in this encounter Visit Diagnoses Not on filedocumented in this encounter
--- OUTSIDE RECORDS SUMMARY | 2024-02-08 00:44 | XMS_ITS | Encounter Summary ---
Author Organization [facility] Address [address] [place] [address] Care Team Providers Care Parking Control Officer Name Role Phone Unavailable Primary Care Provider Unavailabl e Encounter Details Date Type Department Care Team (Late st Contact Info) Description 04/09/2006 Results Only [facility] - [facility] [address] [place] [address] Jarod Le MD [address] [place] [address] Social History Tobacco Use Types [...] Date/Time Associated Diagnosis Comments SURGICAL PATHOLOGY Routine 04/09/2006 0:00 EST documented in this encounter Results * SURGICAL PATHOLOGY (04/09/2006 0:00 EST) Pathology Report: SURGICAL PATHOLOGY REPORT Reports generated via electronic interface contain original data; however they are lacking the format of the original report. Caution should be taken when reading/interpreti ng unformatted reports. Name: ? JANES MARTINEZ ? Accession #: ? [id number] ? : ? 1965 (Age: 40) ??F ? Collect Date: ? 04/09/2006 ? Location: ? [facility] ? Receive Date: ? 04/10/2006 ? Provider: JAROD LE MD Copy to: LONI GOLDSMITH BLACKSMITH SUPERVISOR ? Final Pathologic Diagnosis: A. ?Skin and breast tissue, left breast, excisional biopsy: 1. ?Necrotizing granulomatous inflammation. ? - No mycobacterial or fungal organisms identified. ??See comment. 2. ?Skin and subcutaneous tissue with focal ulceration, fibrosis and focal abscess formation. 3. ?Acute and chronic lobulitis. ? 4. ?? Deep resection margins appear viable. 5. ?? No tumor identified. ? B. ?Breast, left, mass, deep medial margin re-excision: ? 1. ?? Mild duct ectasia with acute and chronic inflammation and foreign body giant cell ?reaction, focally to hair-shaft and keratin debris. ? 2. ?? Scant benign breast tissue with: ?- Mild adenosis. ? - Dense interlobular fibrosis. 3. ?? Surgical resection margins appear negative. 4. ?? No tumor identified. Comment: ? Special stains for mycobacterial (AFB) and fungal organisms (GMS silver and PAS) were performed on block (A3). ??No definite organisms were identified and the focally necrotizing granulomatous inflammation with foreign body giant cell reaction could be related to duct rupture/trauma secondary to the nipple injury/infection. ??Of note is a significant absence of identifiable ducts in the inflamed tissue. ??The differential diagnosis based on histopathologic findings includes sarcoidosis amongst other unusual infections, however, it is much less likely. ??Reoccurring subareolar abscesses have been observed in (young) women, related to duct squamous metaplasia, which is not identified in this case. Correlation with culture results is recommended. ??(Dr. Lofton)/mpl ?? Document reviewed and electronically signed by: YESENIA LOFTON MD Report ??Date: 04/15/2006 21:17 By the signature above, the attending physician certifies that he/she has personally conducted a gross and/or microscopic examination of the described specimens and rendered or confirmed the above diagnosis. Specimen(s) Received: A. ?Left breast mass B. ? Deep medial margin Clinical History: ? Left breast bx, left breast mass, left breast mass persists after left nipple piercing infection Gross Description: ? Received in formalin labelled Young and left breast mass is a 1.5 x 0.5 cm ellipse of skin with underlying fibrofatty tissue which measures 2.3 x 1.5 cm by 1.5 cm in depth. ??The specimen weighs 2.3 grams and the resection margin is black-inked. ??The cutaneous surface is light fischer-white, slightly wrinkled with a 0.5 cm in length incision. ??The specimen is serially sectioned into six levels revealing the dermis is firm and white and focally fischer-brown and the subcutaneous adipose tissue is light yellow and firm with no discrete nodules. The specimen is submitted entirely as follows: BLOCK DIALLO A1 ?One end, three perpendicular sections A2-A5 ?Four central sections A6 ?Opposite end, two perpendicular sections Received in formalin labelled Young and deep medial margin left breast mass are two light yellow, lobular fragments of fibrofatty tissue which measure 2.4 x 1.6 x 1.1 cm and 0.5 x 0.4 x 0.2 cm and which weigh 1.5 grams. ??The specimen is received without orientation and the largest piece of tissue on one side is slightly concave and hyperemic while the opposite side is slightly convex. ??The concave side is blue-inked and the convex side is black-inked. ??The external surface of the smaller piece of tissue is not inked. ??The largest piece of tissue is sectioned revealing a light yellow, lobular, slightly firm cut surface with no discrete nodules. ??The specimen is submitted entirely as follows: BLOCK DIALLO B1-B3 ?Largest piece of tissue, five sections B4 ?Intact small piece of tissue (Kristen Sheth)/mpl End of Report JULIO FREY 04/09/2006 04/10/2006 5:2 6 EST us Jarod Le MD PATHOLOGY ORDERABLES Final Resul t [facility] [address] [place] [address] documented in this encounter Visit Diagnoses Not on filedocumented in this encounter
--- OUTSIDE RECORDS SUMMARY | 2024-02-08 00:44 | XMS_ITS | Encounter Summary ---
Author Organization [facility] Address [address] [place] [address] Care Team Providers Care Senior Sas Developer Name Role Phone Sebastián Langston PA-C Primary Care Provider + Encounter Details Date Type Department Care Team (Late Contact Info) Description 01/22/2020 Lab Requisition [facility] Pathology & Laboratory Medicine - [facility] [address], [place] [address] Outr Resulting Lab, Provider Social History Tobacco [...] Procedure Name Priority Date/Time Associated Diagnosis Comments DO NOT ORDER STANDALONE - [facility] COVID TEST Today 01/21/2020 17:45 EST COVID-19 TESTING Routine 01/21/2020 17:4 5 EST documented in this encounter Results * DO NOT ORDER STANDALONE - [facility]OAD COVID TEST (01/21/2020 17:45 EST) COVID-19 rt-PCR Result NEGATIVE Negative 01/24/2020 8:37 EST [facility] Comment: 2019-novel Coronavirus (2019-nCoV) not detected by the qRT-PCR assay. Consider testing for other respiratory viruses or re-collecting for 2019-nCoV testing. Note: Optimum timing for peak viral levels during infections caused by 2019-nCoV have not been determined. Collection of multiple specimens from the same patient may be necessary to detect the virus. Limitations Positive results are indicative of active infection with SARS-CoV-2 but do not rule out bacterial infection or co-infection with other viruses. The agent detected may not be the definite cause of disease. In addition, detection of viral RNA may not indicate the presence of infectious virus or that SARS-CoV-2 is the causative agent for clinical symptoms. Negative results do not preclude SARS-CoV-2 infection and should not be used as the sole basis for patient management decisions. Negative results must be combined with clinical observations, patient history, and epidemiological information. False negative results may also occur if amplification inhibitors are present in the specimen or if inadequate numbers of organisms are present in the specimen. Optimum specimen types and timing for peak viral levels during infections caused by SARS-CoV-2 have not been fully determined. Collection of multiple specimens (types and time points) from the same patient may be necessary to detect the virus. The test was validated for use with upper respiratory specimens obtained via nasopharyngeal or oropharyngeal swabs in VTM, UTM, M4, M5, M6, saline, and MTM media. The performance of this test has not been established for other specimens. Specimens collected using other FDA recommended Specimen Collection Materials listed in the FDA COVID-19 [employer] communication (May 08, 2019) are processed with the caveat that they were not all validated for use with this test and the result must be interpreted in this context. Furthermore, a false negative results may occur if a specimen is improperly collected, transported or handled. If the virus mutates in the RT-PCR target region, SARS-CoV-2 may not be detected or may be detected less predictably. Inhibitors or other types of interference may produce a false negative result. An interference study evaluating the effect of common cold medications was not performed. This test is not FDA-cleared but its performance characteristics were established by our CLIA-certified, CAP-accredited, high complexity laboratory in accordance with CLIA regulations, [employer] (CAP) guidelines (May 01, 2019), and FDA guidance (Apr 12, 2019). This test is only for use under the Food and Drug Administration's Emergency Use Authorization. Swab ENTIRE NASOPHARYNX / Unknown 01/21/2020 17:45 EST 01/22/2020 15:58 EST us Provider Outr Resulting Lab MICROBIOLOGY - GENER AL ORDERABLES Final Result [facility] [place] * COVID-19 TESTING (01/21/2020 17:45 EST) COVID-19 rt-PCR Result NEGATIVE Negative 01/24/2020 9:55 EST [facility] Comment: 2019-novel Coronavirus (2019-nCoV) not detected by the qRT-PCR assay. Consider testing for other respiratory viruses or re-collecting for 2019-nCoV testing. Note: Optimum timing for peak viral levels during infections caused by 2019-nCoV have not been determined. Collection of multiple specimens from the same patient may be necessary to detect the virus. Limitations Positive results are indicative of active infection with SARS-CoV-2 but do not rule out bacterial infection or co-infection with other viruses. The agent detected may not be the definite cause of disease. In addition, detection of viral RNA may not indicate the presence of infectious virus or that SARS-CoV-2 is the causative agent for clinical symptoms. Negative results do not preclude SARS-CoV-2 infection and should not be used as the sole basis for patient management decisions. Negative results must be combined with clinical observations, patient history, and epidemiological information. False negative results may also occur if amplification inhibitors are present in the specimen or if inadequate numbers of organisms are present in the specimen. Optimum specimen types and timing for peak viral levels during infections caused by SARS-CoV-2 have not been fully determined. Collection of multiple specimens (types and time points) from the same patient may be necessary to detect the virus. The test was validated for use with upper respiratory specimens obtained via nasopharyngeal or oropharyngeal swabs in VTM, UTM, M4, M5, M6, saline, and MTM media. The performance of this test has not been established for other specimens. Specimens collected using other FDA recommended Specimen Collection Materials listed in the FDA COVID-19 [employer] communication (May 08, 2019) are processed with the caveat that they were not all validated for use with this test and the result must be interpreted in this context. Furthermore, a false negative results may occur if a specimen is improperly collected, transported or handled. If the virus mutates in the RT-PCR target region, SARS-CoV-2 may not be detected or may be detected less predictably. Inhibitors or other types of interference may produce a false negative result. An interference study evaluating the effect of common cold medications was not performed. This test is not FDA-cleared but its performance characteristics were established by our CLIA-certified, CAP-accredited, high complexity laboratory in accordance with CLIA regulations, [employer] [place] (CAP) guidelines (May 01, 2019), and FDA guidance (Apr 12, 2019). This test is only for use under the Food and Drug Administration's Emergency Use Authorization. Performing Lab [facility] 01/24/2020 9:[address] [facility] Swab 01/21/2020 17:4 5 EST 01/22/2020 15:58 EST us Provider Outr Resulting Lab MICROBIOLOGY - GENER AL ORDERABLES Final Result [facility] [address] [place], [place] [id number] [place] [address] LABORATORY [place] documented in this encounter Visit Diagnoses Not on filedocumented in this encounter Care Teams Senior Sas Developer Relationship Specialty Start Date End Date Sebastián Langston PA-C PCP - General 04/22/14 documented as of this encounter
--- OUTSIDE RECORDS SUMMARY | 2024-02-08 00:44 | XMS_ITS | Encounter Summary ---
Author Organization [facility] Address [address] [place] [address] Care Team Providers Care Viticulturist Name Role Phone Unavailable Primary Care Provider Unavailabl e Encounter Details Date Type Department Care Team (Late st Contact Info) Description 01/25/2006 Results Only [facility] [address] [place] [address] Jarod Le MD [address] [place] [address] Social History Tobacco Use Types [...] Date/Time Associated Diagnosis Comments SURGICAL PATHOLOGY Routine 01/25/2006 0:00 EST documented in this encounter Results * SURGICAL PATHOLOGY (01/25/2006 0:00 EST) Pathology Report: SURGICAL PATHOLOGY REPORT Reports generated via electronic interface contain original data; however they are lacking the format of the original report. Caution should be taken when reading/interpreting unformatted reports. Name: ? JANES MARTINEZ ? Accession #: ? [id number] ? : ? 1965 (Age: 40) ??F ? Collect Date: ? 01/25/2006 ? Location: ? [facility] ? Receive Date: ? 01/25/2006 ? Provider: JAROD LE MD Copy to: LONI GOLDSMITH MARKETING OPERATIONS ANALYST ? Final Pathologic Diagnosis: ? Skin of breast, left, biopsy: 1. ??Portions of skin with granulation tissue and mixed inflammation. 2. ??Rare gram positive organisms are identified. Comment: ? The fragmented portions of deep dermis show formation of granulation tissue with a mixed inflammatory infiltrate that is predominately lymphomononuclear. Although small aggregates of neutrophils are evident, the features are not those of a well developed abscess. ??Additional sections were prepared with Brown and Brenn stain to detect bacterial organisms. ??A small number of gram positive organisms are identified. ??Their morphology is somewhat variable. ??Confirmation by microbiologic culture is suggested. (Dr. New)/[facility] Microscopic Description: ? Sections consist of multiple irregular fragments of skin. ??There is a small portion of epidermis that is unremarkable. ??Within the superficial dermis, there is a mild perivascular infiltrate. ??The fragmented portions of deeper dermis have granulation tissue formation with a moderately dense, mixed inflammatory infiltrate. ??The infiltrate is predominated by lymphomononuclear cells but small aggregates of neutrophils are evident. ??Histiocytes are also present and form small aggregates but no well developed granulomas. ??On sections prepared with Brown and Brenn stain, a small number of gram positive organisms are identified. The organisms are somewhat roe-shaped although others appear to have a somewhat coccal form. ??(Dr. New)/[facility] Document reviewed and electronically signed by: Belkis New MD Report ??Date: 01/30/2006 16:45 By the signature above, the attending physician certifies that he/she has personally conducted a gross and/or microscopic examination of the described specimens and rendered or confirmed the above diagnosis. Specimen(s) Received: ? Left breast skin tissue Clinical History: ? Left breast erythema & pain - ? abscess Gross Description: ? Received in formalin labelled Young and left breast and skin tissue is a 1.0 x 0.6 x 0.2 cm aggregate of red-pink, granular soft tissue along with a 0.7 x 0.3 by less than 0.1 cm pale fischer skin shave. ??The soft tissue is submitted in toto as (A1) and the shave is bisected and entirely submitted as (A2). (Michael Vasquez)/mpl End of Report [facility] 01/25/2006 01/25/2006 15: 17 EST us Jarod Le MD PATHOLOGY ORDERABLES Final Resul t [facility] [address] [place] [address] documented in this encounter Visit Diagnoses Not on filedocumented in this encounter
--- OUTSIDE RECORDS SUMMARY | 2024-02-08 00:44 | XMS_ITS | Encounter Summary ---
Author Organization [facility] Address [address] [place] [address] Care Team Providers Care Plywood Patcher Name Role Phone Unavailable Primary Care Provider Unavailabl e Encounter Details Date Type Department Care Team (Late st Contact Info) Description 04/27/2004 Results Only [facility] [place] [facility] [address] [place] [address] Izabela Henning MD [address] [place] [address] [place] [address] Social History Tobacco Use Types Packs/Day Years [...] Date/Time Associated Diagnosis Comments SURGICAL PATHOLOGY Routine 04/27/2004 0:00 EST documented in this encounter Results * SURGICAL PATHOLOGY (04/27/2004 0:00 EST) Pathology Report: SURGICAL PATHOLOGY REPORT Reports generated via electronic interface contain original data; however they are lacking the format of the original report. Caution should be taken when reading/interpreti ng unformatted reports. Name: ? JANES MARTINEZ ? Accession #: ? [id number] ? : ? 1965 (Age: 38) ??F ? Collect Date: ? 04/27/2004 ? Location: ? [facility] ? Receive Date: ? 04/28/2004 ? Provider: IZABELA HENNING MD Copy to: RENO ROSS MD ? Final Pathologic Diagnosis: ? Cervix, polyps, excision: - ??Fragments of endocervical polyp. Document reviewed and electronically signed by: CINTHYA HERNANDEZ MD Report ??Date: 05/02/2004 14:53 By the signature above, the attending physician certifies that he/she has personally conducted a gross and/or microscopic examination of the described specimens and rendered or confirmed the above diagnosis. Specimen(s) Received: ? Cervical polyps Clinical History: ? Cervical polyps; LMP: 04/08/04 Gross Description: ? Received in formalin labelled Young and cervical polyps are two fischer-red, hyperemic, polypoid soft tissues measuring 0.7 x 0.5 x 0.3 cm and 1.8 x 1.5 x 0.3 cm. ??The largest polypoid tissue is longitudinally bisected and entirely submitted as (A1). ??The smaller polypoid structure is submitted intact as (A2). ??(Marylou Ceballos/[facility] End of Report [facility] 04/27/2004 04/28/2004 14: 52 EST us Izabela Henning MD PATHOLOGY ORDERABLES Final Resu lt [facility] [address] [place] [address] documented in this encounter Visit Diagnoses Not on filedocumented in this encounter
--- OUTSIDE RECORDS SUMMARY | 2024-02-08 00:44 | XMS_ITS | Encounter Summary ---
Author Organization [facility] Address [address] [place] [address] Care Team Providers Care Fiscal Assistant Name Role Phone Ar Gaston PA-C Primary Care Provider + Encounter Details Date Type Department Care Team ([facility] st Contact Info) Description 06/16/2015 Results Only [facility] [phone] Ar Gaston PA-C [address] [place] [phone] Social History Tobacco Use Types Packs/Day Years [...] Diagnosis Comments PAP TEST- RESULT ONLY Routine 06/16/2015 0:00 EDT documented in this encounter Results * PAP TEST- RESULT ONLY (06/16/2015 0:00 EDT) Pathology Report: CYTOPATHOLOGY REPORT Reports generated via electronic interface contain original data; however they are lacking the format of the original report. Caution should be taken when reading/interpreti ng unformatted reports. Name: ? JANES MARTINEZ ? Accession #: ? [id number] ? : ? 1965 (Age: 49) ??F ?Collect Date: ? 06/16/2015 ? Location: ? [facility] ? Receive Date: ? 06/18/2015 ? Provider: AR GASTON PA-C Copy to: ? Final Report SPECIMEN ADEQUACY ? Satisfactory for Evaluation - transformation zone component present GENERAL CATEGORIZATION ? Negative for Intraepithelial Lesion or Malignancy ?? Last Menstrual Period: 05/17/2015 Hormonal/Contracep tive status: None Previous Gynecologic Pathology: None Treatment History: None Specimen/Source: ??Pap Test, Cervix/Endocervix, ThinPrep Imaging System with manual evaluation Document reviewed and electronically signed by: ? IRIS Hall(ASCP) ? Report ??Date: 06/29/2015 15:30 HPV with Pap Test ? Date Ordered: ? 06/29/2015 ? Status: ?? Signed Out ?Date Complete: ? 07/01/2015 ? By: ??System Interface ? Date Reported: ? 07/01/2015 ? Interpretation RESULT: Negative for HPV. No E6 or E7 mRNA is detected from HPV types 16,18,31,33,35, 39,45,51,52,56,58, 59,66, and 68 by shoe reconditioner mediated amplification. Comments Document reviewed and electronically signed by: ? System Interface ? Report date: 07/01/2015 By the signature above, the attending physician certifies that he/she has personally conducted a gross and/or microscopic examination of the described specimens and rendered or confirmed the above diagnosis. End of Report [facility] 06/16/2015 06/18/2015 us Ar Gaston PA-C PATHOLOGY ORDERABLES Fin al Result [facility] [address] [place] [address] documented in this encounter Visit Diagnoses Not on filedocumented in this encounter Care Teams Fiscal Assistant Relationship Specialty Start Date End Date Ar Gaston PA-C PCP - General 04/22/14 documented as of this encounter
--- OUTSIDE RECORDS SUMMARY | 2024-02-08 00:44 | XMS_ITS | Encounter Summary ---
Author Organization [facility] Address [address] [place] [address] Care Team Providers Care Carton Making Machinist Name Role Phone Salazar Neville MD Primary Care Provider Unav ailable Encounter Details Date Type Department Care Team (Late st Contact Info) Description 12/05/2011 Results Only [facility] [phone] Milena Lozoya MD [address] [place] [address] Social History Tobacco Use Types Packs/Day Years [...] Date/Time Associated Diagnosis Comments SURGICAL PATHOLOGY Routine 12/05/2011 0:00 EDT documented in this encounter Results * SURGICAL PATHOLOGY (12/05/2011 0:00 EDT) Pathology Report: SURGICAL PATHOLOGY REPORT Reports generated via electronic interface contain original data; however they are lacking the format of the original report. Caution should be taken when reading/interpreti ng unformatted reports. Name: ? JANES MARTINEZ ? Accession #: ? [id number] ? : ? 1965 (Age: 46) ??F ? Collect Date: ? 12/05/2011 ? Location: ? [facility] ? Receive Date: ? 12/06/2011 ? Provider: MILENA LOZOYA MD Copy to: SALAZAR NEVILLE MD ? Final Pathologic Diagnosis: ? Endometrium, biopsy: - Fragments of benign secretory endometrium with stromal and glandular breakdown. ?? Document reviewed and electronically signed by: ESTRELLA ROSADO MD Report ??Date: 12/08/2011 14:51 By the signature above, the attending physician certifies that he/she has personally conducted a gross and/or microscopic examination of the described specimens and rendered or confirmed the above diagnosis. Specimen(s) Received: ? Endometrial bx Clinical History: ? Irregular bleeding Gross Description: ? Received in formalin labelled Young, Janes and endometrial bx are approximately 4-cc of clotted blood and blood-tinged mucus admixed with multiple fragments of red-brown tissue. ??The specimen is submitted entirely as (A1) and (A2) following filtration. (Gali Sheth)/mpl End of Report [facility] 12/05/2011 12/06/2011 8:1 7 EDT us Milena Lozoya MD PATHOLOGY ORDERABLES Final Resu lt [facility] [address] [place] [address] documented in this encounter Visit Diagnoses Not on filedocumented in this encounter Care Teams Carton Making Machinist Relationship Specialty Start Date End Date Salazar Neville MD PCP - General 12/06/11 04/21/14 documented as of this encounter
--- OUTSIDE RECORDS SUMMARY | 2024-02-08 00:44 | XMS_ITS | Encounter Summary ---
Author Organization [facility] Address [address] [place] [address] Care Team Providers Care Well Service Floorperson Name Role Phone Unavailable Primary Care Provider Unavailabl e Encounter Details Date Type Department Care Team (Late st Contact Info) Description 08/18/2009 Results Only [facility] - [facility] ([facility] [address] [place] [address] Darnell Gutiérrez NP [address] [place] [address] Social History Tobacco Use Types Packs/Day Years [...] Priority Date/Time Associated Diagnosis Comments CYTOPATHOLOGY Routine 08/18/2009 0:00 EDT documented in this encounter Results * CYTOPATHOLOGY (08/18/2009 0:00 EDT) Pathology Report: CYTOPATHOLOGY REPORT ? Reports generated via electronic interface contain original data; ? however they are lacking the format of the original report. ? Caution should be taken when reading/interpreti ng unformatted reports. ? Name: ? JANES MARTINEZ ? Accession #: ? [id number] ? : ? 1965 (Age: 44) ??F ?Collect Date: ? 08/18/2009 ? Location: ? [facility] ? Receive Date: ? 08/20/2009 ? Provider: ?DARNELL GUTIÉRREZ REFRIGERATOR CRATER ? Copy to: ? Specimen/Source: ?Pap Test, Cervix/Endocervix, ThinPrep Imaging System ? with manual evaluation ? Last Menstrual Period: ? 6/28/10 ? Previous Gynecologic Pathology: ? HSIL ? Yes: cervical polyps ? Treatment History: ? Cone biopsy: 2/97 ? Miscellaneous treatment: 2005 excision cervical polyps ? Other: ? HPVA - HPV testing requested if ASC-US on the current ThinPrep Pap test. ? SPECIMEN ADEQUACY ? Satisfactory for Evaluation ? - transformation zone component present ? GENERAL CATEGORIZATION ? Negative for Intraepithelial Lesion or Malignancy ? Document reviewed and electronically signed by: ? Laurence Tristanlogg, [place](ASCP) ? Report Date: ??08/24/2009 14:26 ? End of Report ? [facility] 08/18/2009 08/20/2009 us Darnell Gutiérrez REFRIGERATOR CRATER PATHOLOGY ORDERABLES Final Res ult [facility] [address] [place] [address] documented in this encounter Visit Diagnoses Not on filedocumented in this encounter
== END 2024-02-08 01:02 ==
LOC: DI 00:42
PROVIDERS: PCP Physician Assistant Medical; Visit Provider Physician Assistant Medical
DX: Z12.31 Encounter for screening mammogram for malignant neoplasm of breast (principal); R92.313 Mammographic fatty tissue density, bilateral breasts
CPT/HCPCS: 77063; 77067